=== PATIENT | male | born 1960 | race African-American/Black ===

== ENCOUNTER 2019-10-27 14:07 | Inpatient (IN) | payer OTHER ==
[2019-10-27] VITALS (7 sets, daily range): BP systolic 107–123; BP diastolic 68–78
[~2019-10-27] VITALS: Ht 175.3 cm; Wt 88.0 kg
[2019-10-27 14:47] LABS: HEMATOCRIT 44.8 % (39.0-50.0); HEMOGLOBIN 13.8 g/dl (14.0-18.0); IMMATURE GRANULOCYTES 0.3 % (0.0-5.0); MEAN CELL VOLUME 88.7 fL CALC (80.0-100.0); MEAN CORPUSCULAR HGB 27.3 pG CALC (26.0-32.0); MEAN CORPUSCULAR HGB CONC 30.8 g/L CALC (32.0-36.0); NEUT# 7.75 thou/uL (1.82-7.42); RED BLOOD COUNT 5.05 mill/uL (4.70-6.10); RED CELL DISTRI WIDTH 12.1 % (11.5-15.5)
[2019-10-27 15:07] LABS: ALBUMIN 4.5 g/dL (3.2-5.0); ALKALINE PHOSPHATASE 93 u/l (38-126); ANION GAP 15 (6-22 (CALC)); BUN 10 mg/dL (9-20); BUN/CREATININE RATIO 11 (12-20 (CALC)); CARBON DIOXIDE 27 mmol/l (22-30); CHLORIDE 101 mmol/l (95-108); CREATININE 0.9 mg/dL (0.7-1.3); GFR > 60 ML/MIN (>=60 (CALC)); GFR FOR AFR.AMER. > 60 ML/MIN (>=60 (CALC)); LIPASE 44 u/l (23-300); POTASSIUM 4.9 mmol/l (3.5-5.1); SGOT/AST 24 u/l (17-59); SODIUM 138 mmol/l (137-146); TOTAL PROTEIN 7.9 g/dL (6.3-8.2)
[2019-10-27 21:57] LABS: URINE BILIRUBIN - DIPSTICK NEGATIVE (NEGATIVE); URINE BLOOD DIPSTICK NEGATIVE (NEGATIVE); URINE COLOR YELLOW; URINE GLUCOSE - DIPSTICK NEGATIVE (NEGATIVE); URINE KETONE NEGATIVE (NEGATIVE); URINE LEUK ESTERASE NEGATIVE (NEGATIVE); URINE NITRITE - DIPSTICK NEGATIVE (Negative); URINE PROTEIN - DIPSTICK NEGATIVE (NEG-TRACE)
[2019-10-28] VITALS: BP 118/72
[2019-10-28 04:00] VITALS: BP 126/77
[2019-10-28 05:35] LABS: HEMOGLOBIN 12.1 g/dl (14.0-18.0); IMMATURE GRANULOCYTES 0.4 % (0.0-5.0); MEAN CELL VOLUME 88.1 fL CALC (80.0-100.0); MEAN CORPUSCULAR HGB 27.8 pG CALC (26.0-32.0); MEAN CORPUSCULAR HGB CONC 31.5 g/L CALC (32.0-36.0); RED BLOOD COUNT 4.36 mill/uL (4.70-6.10); RED CELL DISTRI WIDTH 11.9 % (11.5-15.5)
[2019-10-28 05:41] LABS: HEMATOCRIT 38.4 % (39.0-50.0)
[2019-10-28 08:49] VITALS: BP 145/72
[2019-10-28 12:14] VITALS: BP 145/72
[2019-10-28 16:00] VITALS: BP 115/69
[2019-10-28 19:25] VITALS: BP 120/71
[2019-10-29 05:03] VITALS: BP 141/80
[2019-10-29 07:51] VITALS: BP 130/69
[2019-10-29 11:40] VITALS: BP 156/79
[2019-10-29 15:49] VITALS: BP 140/76
[2019-10-29 19:05] VITALS: BP 142/78
[2019-10-30 04:23] VITALS: BP 156/76
[2019-10-30 07:10] VITALS: BP 129/80
[2019-10-30 15:05] VITALS: BP 135/71
[2019-10-30 19:05] VITALS: BP 135/73
[2019-10-31 04:10] VITALS: BP 127/70
[2019-10-31 06:10] LABS: HEMOGLOBIN 11.1 g/dl (14.0-18.0); IMMATURE GRANULOCYTES 0.4 % (0.0-5.0); MEAN CORPUSCULAR HGB 27.3 pG CALC (26.0-32.0); MEAN CORPUSCULAR HGB CONC 31.7 g/L CALC (32.0-36.0); NEUT# 3.56 thou/uL (1.82-7.42); RED BLOOD COUNT 4.07 mill/uL (4.70-6.10); RED CELL DISTRI WIDTH 12.3 % (11.5-15.5)
[2019-10-31 07:32] VITALS: BP 136/68
[2019-10-31 15:00] VITALS: BP 140/75
[2019-10-31 19:28] VITALS: BP 136/75
[2019-11-01 04:32] VITALS: BP 124/75
[2019-11-01 07:34] VITALS: BP 140/74
[2019-11-01] MEDS ORDERED: AUGMENTIN500TAB PO (13:31)
== END 2019-11-01 14:10 | disposition designated cancer center or children's hospital (05) | DRG 340 ==
LOC: ED 14:07 → ED-I 15:56 → ED 16:05 → MS2 16:06
PROVIDERS: ADMIT Surgery; ATTEND Surgery
PROC: 0DTJ4ZZ Resection of Appendix, Percutaneous Endoscopic Approach (ICD-10-PCS; principal; 2019-10-27)
DX: K35.32 Acute appendicitis with perforation, localized peritonitis, and gangrene, without abscess (principal); K38.1 Appendicular concretions; B96.20 Unspecified Escherichia coli [E. coli] as the cause of diseases classified elsewhere
CPT/HCPCS: J0131; J1100; J2710; Q9967